=== PATIENT | female | born 2000 | race Caucasian/White ===

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

== ENCOUNTER 2022-09-16 18:21 | Emergency (ER) | payer OTHER ==
[~2022-09-16] VITALS: Ht 154.9 cm; Wt 51.3 kg
[2022-09-17] MEDS ORDERED: INTESTINEX680 M1 PO (01:16)
[2022-09-17] MEDS ORDERED: ONDANSETRON ODT4 MG PO (01:16)
[2022-09-17] MEDS ORDERED: PEPCID40 MG PO (01:16)
== END 2022-09-17 01:45 | disposition home or self-care (01) ==
LOC: ER 18:21 → EMR PED 18:23 → ER 18:23 → EMR PED 09-17 01:45
DX: K52.89 Other specified noninfective gastroenteritis and colitis (principal); E86.0 Dehydration; F93.8 Other childhood emotional disorders; Z20.822 Contact with and (suspected) exposure to COVID-19